=== PATIENT | female | born 1965 | race Caucasian/White ===

== ENCOUNTER 2021-01-13 19:13 | Observation (INO) ==
[2021-01-13] MEDS ORDERED: ASPIRIN 325 MG TABLET PO STA (19:53)
[2021-01-13] MEDS ORDERED: ONDANSETRON 4 MG/2 ML VIAL IV STA (19:53)
[2021-01-13] MEDS ORDERED: MORPHINE 4 MG/1 ML VIAL IV STA (19:53)
[2021-01-13] MEDS ORDERED: NITROGLYCERIN 2% OINT 1 INCH/GM PACK TOP STA (19:53)
[2021-01-13] MEDS ORDERED: ALUM/MAG/SIMETH/LIDO VISC 1:1 30 ML BOTTLE PO STA (19:53)
[2021-01-13 20:33] LABS: Basophils % 0.4 % (0.0-0.8); Eosinophils # 0.3 10*3/uL (0.0-0.87); Eosinophils % 4.3 % (0.00-10.9); Hematocrit 47.6 VOL% (35.7-47.0); Hemoglobin 15.5 GM/DL (12.0-16.0); Immature Granulocytes % 0.4 %; Immature Granulocytes Absolute 0.03 #; Lymphocytes # 2.9 10*3/uL (1.4-4.0); Lymphocytes % 39.3 % (21.3-54.2); Mean Corpuscular HGB Conc 32.6 GM/DL (32-36); Mean Corpuscular Volume 91.2 FL (87-102); Mean Platelet Volume 10.5 FL (9.6-12.0); Monocytes % 7.8 % (1.7-12.7); Neutrophils % 47.8 % (38.7-73.9); Platelet Count 212 T/CUMM (130-400); Red Blood Count 5.22 MC/CUMM (3.8-5.5); Red Cell Distribution Width 13.8 % (9.3-17.3); White Blood Count 7.5 T/CUMM (4-12)
[2021-01-13 20:51] LABS: PT Patient Result 10.3 SECS (9.8-11.9)
[2021-01-13 20:53] LABS: Alanine Aminotransferase 40 U/L (13-56); Albumin 3.5 G/DL (3.4-5.0); Alkaline Phosphatase 90 U/L (45-117); Aspartate Amino Transferase 22 U/L (0-37); Atypical Lymphocytes Few; Bilirubin,Total < 0.39 MG/DL (0.2-1.0); Blood Urea Nitrogen 17 MG/DL (7-18); Calcium 9.5 MG/DL (8.5-10.1); Carbon Dioxide 27 MMOL/L (21-32); Eosinophils 7 % (0-10); Estimated Glom Filtration Rate 113 ML/MIN; Glucose 131 MG/DL (74-106); Lymphocytes 41 % (20-55); Osmolality,Calculated 286.1 MOS/KG (273-304); Platelet Estimate Normal; Potassium 3.9 MMOL/L (3.5-5.1); Segmented Neutrophils 43 % (50-85); Sodium 142 MMOL/L (136-145); Total Cells Counted 100
[2021-01-13 20:54] LABS: Reactive Lymphocytes 1+
[2021-01-13] MEDS ORDERED: ENOXAPARIN 100 MG/ML SYRINGE SUBCUT STA (21:03)
[2021-01-13] MEDS ORDERED: DEXTROSE 50% 25 GM/50 ML VIAL IV PRN (22:28)
[2021-01-13] MEDS ORDERED: DOCUSATE SODIUM 100 MG CAPSULE PO PRN (22:28)
[2021-01-13] MEDS ORDERED: hydrALAZINE 20 MG/1 ML VIAL IV PRN (22:28)
[2021-01-13] MEDS ORDERED: MORPHINE 4 MG/1 ML VIAL IV PRN (22:28)
[2021-01-13] MEDS ORDERED: ACETAMINOPHEN 325 MG TABLET PO PRN (22:28)
[2021-01-13] MEDS ORDERED: ZALEPLON 5 MG CAPSULE PO PRN (22:28)
[2021-01-13] MEDS ORDERED: GLUCAGON 1 MG VIAL IM PRN (22:28)
[2021-01-13] MEDS ORDERED: NITROGLYCERIN SL 0.4 MG TABLET SL PRN (22:32)
[2021-01-13] MEDS ORDERED: PANTOPRAZOLE 40 MG TABLET PO SCH (23:28)
[2021-01-13] MEDS ORDERED: PANTOPRAZOLE 40 MG TABLET PO ONE (23:31)
[2021-01-14 00:54] LABS: Basophils % 0.5 % (0.0-0.8); Eosinophils # 0.3 10*3/uL (0.0-0.87); Hematocrit 45.5 VOL% (35.7-47.0); Hemoglobin 14.8 GM/DL (12.0-16.0); Immature Granulocytes % 0.3 %; Immature Granulocytes Absolute 0.02 #; Lymphocytes # 3.4 10*3/uL (1.4-4.0); Mean Corpuscular HGB Conc 32.5 GM/DL (32-36); Mean Platelet Volume 10.2 FL (9.6-12.0); Monocytes % 9.2 % (1.7-12.7); Platelet Count 202 T/CUMM (130-400); Red Cell Distribution Width 13.7 % (9.3-17.3); White Blood Count 7.7 T/CUMM (4-12)
[2021-01-14 01:09] LABS: Calcium 9.1 MG/DL (8.5-10.1); Osmolality,Calculated 276.7 MOS/KG (273-304); Potassium 3.9 MMOL/L (3.5-5.1); Risk Ratio 4.91; Thyroid Stimulating Hormone 4.64 uIU/ml (0.358-3.74); VLDL CHOLESTEROL 27.8 MG/DL
[2021-01-14] MEDS: ONDANSETRON 4 MG/2 ML VIAL IV PRN ×2 (04:47→18:18)
[2021-01-14] MEDS ORDERED: PROMETHAZINE INJ 12.5 MG in SODIUM CHLORIDE 0.9% 50 ML IV ONE (07:17)
[2021-01-14] MEDS ORDERED: KETOROLAC 30 MG/1 ML VIAL IV ONE (08:51)
[2021-01-14] MEDS: ENOXAPARIN 100 MG/ML SYRINGE SUBCUT SCH ×3 (09:25→20:10)
[2021-01-14] MEDS: PANTOPRAZOLE 40 MG TABLET PO SCH (10:47)
[2021-01-14] MEDS: ASPIRIN EC 81 MG TABLET PO SCH (10:47)
[2021-01-14] MEDS ORDERED: NICOTINE 21 MG/24 HR PATCH TRANSDERM PRN (16:25)
[2021-01-15] MEDS: ONDANSETRON 4 MG/2 ML VIAL IV PRN ×3 (03:28→12:54)
[2021-01-15 05:08] LABS: Basophils % 0.5 % (0.0-0.8); Eosinophils # 0.2 10*3/uL (0.0-0.87); Eosinophils % 3.1 % (0.00-10.9); Hemoglobin 14.2 GM/DL (12.0-16.0); Immature Granulocytes % 0.2 %; Immature Granulocytes Absolute 0.01 #; Lymphocytes # 2.3 10*3/uL (1.4-4.0); Lymphocytes % 38.4 % (21.3-54.2); Mean Corpuscular Volume 90.7 FL (87-102); Mean Platelet Volume 10.6 FL (9.6-12.0); Monocytes % 7.9 % (1.7-12.7); Neutrophils % 49.9 % (38.7-73.9); Platelet Count 202 T/CUMM (130-400); Red Blood Count 4.74 MC/CUMM (3.8-5.5); Red Cell Distribution Width 13.6 % (9.3-17.3)
[2021-01-15 05:19] LABS: Osmolality,Calculated 285.3 MOS/KG (273-304); Potassium 3.7 MMOL/L (3.5-5.1)
[2021-01-15] MEDS: PANTOPRAZOLE 40 MG TABLET PO SCH (08:32)
[2021-01-15] MEDS: ASPIRIN EC 81 MG TABLET PO SCH (08:33)
[2021-01-15] MEDS: ENOXAPARIN 100 MG/ML SYRINGE SUBCUT SCH (08:34)
[2021-01-15] MEDS ORDERED: ENOXAPARIN 40 MG/0.4 ML SYRINGE SUBCUT SCH (09:00)
[2021-01-15 12:35] VITALS: BP 111/54
[2021-01-15] MEDS ORDERED: PANTOPRAZOLE 40 MG TABLET PO SCH (21:00)
== END 2021-01-15 15:09 | disposition home or self-care (01) ==
LOC: N.ED 19:13 → N.EDINP 19:13 → N.TELES 01-14 00:27
PROVIDERS: ADMIT Internal Medicine; ATTEND Internal Medicine